=== PATIENT | female | born 1980 | race Caucasian/White ===

== ENCOUNTER 2017-02-16 23:45 | Observation (INO) | payer MEDICAID ==
[2017-02-17] MEDS ORDERED: Glucagon Recombinant 1 mg Inj ONE (00:23)
[2017-02-17] MEDS ORDERED: Morphine 4 MG/ML VIAL ONE ×3 (00:23→02:34)
[2017-02-17] MEDS ORDERED: Glucagon Recombinant 1 mg Inj IM STA (00:24)
[2017-02-17] MEDS ORDERED: Sodium Chloride 0.9% 1,000 ML IV ONE (00:24)
--- NOTE | 2017-02-17 01:25 | C.PDOC ---
History Of Present Illness 36 year old female who presents to the ER with a complaint of an obstruction to the esophagus. Patient states she was eating pork when she felt a piece lodge in her esophagus. Patient is complaint of difficulty swallowing and pain to the substernal area. Denies bleeding or difficulty breathing. Chief Complaint (Nursing): Foreign Body History Per: Patient History/Exam Limitations: no limitations Onset/Duration Of Symptoms: Hrs Current Symptoms Are (Timing): Still Present Recent travel outside of the [place]: No Past Medical History Reviewed: Historical Data, Nursing Documentation, Vital Signs Vital Signs: Last Vital Signs Temp 97.6 F 02/17/17 03:44 Pulse 71 02/17/17 03:44 Resp 22 02/17/17 03:44 BP 132/75 02/17/17 03:44 Pulse Ox 98 02/17/17 03:44 - Medical History PMH: Asthma, Gastritis Surgical History: No Surg Hx Family History: States: Unknown Family Hx - Social History Hx Tobacco Use: No Hx Alcohol Use: No Hx Substance Use: No - Immunization History Hx Tetanus Toxoid Vaccination: No Hx Influenza Vaccination: No Hx Pneumococcal Vaccination: No Review Of Systems ENT: Negative for: Throat Pain, Throat Swelling Gastrointestinal: Positive for: Other (esophageal pain ). Negative for: Vomiting, Abdominal Pain Physical Exam - Physical Exam Appears: Non-toxic Skin: Normal Color, Warm, Dry Head: Atraumatic, Normacephalic Oral Mucosa: Moist Neck: Normal, Supple Chest: Symmetrical, No Tenderness Cardiovascular: Rhythm Regular, No Murmur Respiratory: Normal Breath Sounds, No Rales, No Rhonchi, No Wheezing Gastrointestinal/Abdominal: Soft, No Tenderness Neurological/Psych: Oriented x3, Normal Speech, Normal Cognition ED Course And Treatment - Laboratory Results Result Diagrams: 02/17/17 03:02 02/17/17 03:02 O2 Sat by Pulse Oximetry: 98 (Room air) Pulse Ox Interpretation: Normal - CT Scan/US CT Chest Other Rad Studies (CT/US): Read By Radiologist, Radiology Report Reviewed CT/US Interpretation: EXAM: CT Chest Without Intravenous Contrast. CLINICAL HISTORY: 36 years old, female; Pain and signs and symptoms; Other: Foreign body. Feels porkchop around. mid sternum; Sternal or substernal pain; Additional info: Esophageal obstruction. TECHNIQUE: Axial computed tomography images of the chest without intravenous contrast. This CT exam was. performed using one or more of the following dose reduction techniques: automated exposure. control, adjustment of the mA and/or kV according to patient size, and/or use of iterative. reconstruction technique. Coronal and sagittal reformatted images were created and reviewed. COMPARISON: RF - ESOPHAGUS 2015 10:03:27 AM. FINDINGS: Limitations: Lack of intravenous contrast. Lungs : No consolidation. Pleural space: No pneumothorax. No significant effusion. Heart: No cardiomegaly. No significant pericardial effusion. Mediastinum: Mild air and fluid distention of mid to distal esophagus. Apparent debris within distal. esophagus/GE junction. Bones/joints: No acute fracture. Soft tissues : Unremarkable. Vasculature: Unremarkable. No aneurysm. Lymph nodes: No pathologically enlarged lymph nodes. Adrenals: Small RIGHT adrenal adenoma. IMPRESSION: 1. Mild air/fluid distention of esophagus. Apparent debris within distal esophagus/GE junction. Clinical correlation is needed. 2. Incidental/ non-acute findings are described above. Progress Note: CT chest ordered. Glucagon, morphine, and IV fluids administered. Disposition Discussed With : Jared Guerrero Doctor Will See Patient In The: Hospital Counseled Patient/Family Regarding: Diagnosis - Disposition Disposition: HOSPITALIZED Disposition Time: 02:35 Condition: STABLE - POA Present On Arrival: None - Clinical Impression Clinical Impression: Esophageal obstruction due to food impaction - Scribe Statement The provider has reviewed the documentation as recorded by the Scribjoseph Shelby All medical record entries made by the Scribe were at my direction and personally dictated by me. I have reviewed the chart and agree that the record accurately reflects my personal performance of the history, physical exam, medical decision making, and the department course for this patient. I have also personally directed, reviewed, and agree with the discharge instructions and disposition.
--- NOTE | 2017-02-17 02:22 | CT ---
EXAM: CT Chest Without Intravenous Contrast CLINICAL HISTORY: 36 years old, female; Pain and signs and symptoms; Other: Foreign body. Feels porkchop around mid sternum; Sternal or substernal pain; Additional info: Esophageal obstruction TECHNIQUE: Axial computed tomography images of the chest without intravenous contrast. This CT exam was performed using one or more of the following dose reduction techniques: automated exposure control, adjustment of the mA and/or kV according to patient size, and/or use of iterative reconstruction technique. Coronal and sagittal reformatted images were created and reviewed. COMPARISON: RF - ESOPHAGUS 07/26/2015 10:03:27 AM FINDINGS: Limitations: Lack of intravenous contrast. Lungs: No consolidation. Pleural space: No pneumothorax. No significant effusion. Heart: No cardiomegaly. No significant pericardial effusion. Mediastinum: Mild air and fluid distention of mid to distal esophagus. Apparent debris within distal esophagus/GE junction. Bones/joints: No acute fracture. Soft tissues: Unremarkable. Vasculature: Unremarkable. No aneurysm. Lymph nodes: No pathologically enlarged lymph nodes. Adrenals: Small RIGHT adrenal adenoma. IMPRESSION: 1. Mild air/fluid distention of esophagus. Apparent debris within distal esophagus/GE junction. Clinical correlation is needed. 2. Incidental/non-acute findings are described above.
[2017-02-17 03:06] LABS: BASO % 0.3 % (0.0-2.0); EOS % 0.3 % (0.0-4.0); HEMOGLOBIN 12.2 g/dL (11.0-16.0); LYMPH # 2.1 K/uL (1.0-4.3); MEAN CELL VOLUME 90.7 fL (81.0-99.0); MEAN CORPUSCULAR HEMOGLOBIN 30.4 pg (27.0-31.0); MEAN CORPUSCULAR HGB CONC 33.5 g/dL (33.0-37.0); MEAN PLATELET VOLUME 9.2 fL (7.2-11.7); MONO % 6.5 % (0.0-10.0); NEUT # 11.7 K/uL (1.8-7.0); NEUT % 78.9 % (50.0-75.0); RBC 4.02 Mil/uL (3.80-5.20); RED CELL DISTRIBUTION WIDTH 13.8 % (11.5-14.5); WHITE BLOOD COUNT 14.9 K/uL (4.8-10.8)
[2017-02-17 03:25] LABS: SQUAMOUS EPITHIAL 7 /hpf (0-5); URINE BACTERIA RARE (<OCC); URINE BILIRUBIN NEGATIVE (NEGATIVE); URINE BLOOD NEGATIVE (NEGATIVE); URINE CLARITY Hazy (Clear); URINE COLOR Yellow (YELLOW); URINE GLUCOSE (UA) NORMAL (Normal); URINE LEUKOCYTE ESTERASE NEG Leu/uL (Negative); URINE NITRATE NEGATIVE (NEGATIVE); URINE PROTEIN NEGATIVE (NEGATIVE); URINE UROBILINOGEN NORMAL mg/dL (0.2-1.0)
[2017-02-17 03:28] LABS: ALBUMIN 3.7 g/dL (3.5-5.0)
[2017-02-17 03:31] LABS: ALB/GLOB RATIO 1.3 (1.0-2.1); ALT/SGPT 24 U/L (9-52); AST/SGOT 20 U/L (14-36); BLOOD UREA NITROGEN 13 mg/dL (7-17); GFR AFRICAN-AMERICAN > 60; GFR NON-AFRICAN AMERICAN > 60
[2017-02-17 03:32] LABS: CALCIUM 8.2 mg/dl (8.6-10.4)
[2017-02-17] MEDS: Dextrose 5%/0.45% NS 1,000 ML IV SCH ×2 (04:49→22:54)
--- NOTE | 2017-02-17 11:15 | CP.PCM.HP ---
History of Present Illness - History of Present Illness History of Present Illness: 36 year old female who presents to the ER with a complaint of an obstruction to the esophagus. Patient states she was eating pork when she felt a piece lodge in her esophagus. Patient is complaint of difficulty swallowing and pain to the substernal area. Denies bleeding or difficulty breathing. Review of Systems - Constitutional Constitutional: Weakness Past Patient History - Past Social History Smoking Status: Never Smoked - PULMONARY Hx Asthma: Yes - MUSCULOSKELETAL/RHEUMATOLOGICAL Hx Falls: No - GASTROINTESTINAL Hx Gastritis: Yes - PSYCHIATRIC Hx Substance Use: No - ANESTHESIA Hx Anesthesia: No Meds Allergies/Adverse Reactions: Allergies Allergy/AdvReac Type Severity Reaction Status Date / Time No Known Allergies Allergy Verified 02/17/17 00:02 Physical Exam - Constitutional Appears: Non-toxic, No Acute Distress - Head Exam Head Exam: ATRAUMATIC, NORMAL INSPECTION, NORMOCEPHALIC - Eye Exam Eye Exam: EOMI, Normal appearance, PERRL Pupil Exam: NORMAL ACCOMODATION - ENT Exam ENT Exam: Mucous Membranes Moist, Normal Exam, Normal Oropharynx, TM's Normal Bilaterally - Neck Exam Neck exam: Positive for: Normal Inspection - Respiratory Exam Respiratory Exam: NORMAL BREATHING PATTERN - Cardiovascular Exam Cardiovascular Exam: REGULAR RHYTHM, +S1, +S2 - GI/Abdominal Exam GI & Abdominal Exam: Normal Bowel Sounds - Rectal Exam Rectal Exam: NORMAL INSPECTION - Exam Exam: NORMAL INSPECTION - Neurological Exam Neurological exam: Alert, CN II-XII Intact, Normal Gait, Oriented x3, Reflexes Normal - Skin Skin Exam: Dry Results - Vital Signs Recent Vital Signs: Last Vital Signs Temp 97.6 F 02/17/17 03:44 Pulse 71 02/17/17 03:44 Resp 22 02/17/17 03:44 BP 132/75 02/17/17 03:44 Pulse Ox 98 02/17/17 04:13 - Labs Result Diagrams: 02/17/17 03:02 02/17/17 13:58 Labs: Laboratory Results - last 24 hr 02/17/17 02/17/17 02/17/17 03:02 03:02 03:02 WBC 14.9 H D RBC 4.02 Hgb 12.2 Hct 36.4 MCV 90.7 MCH 30.4 MCHC 33.5 RDW 13.8 Plt Count 243 MPV 9.2 Neut % (Auto) 78.9 H Lymph % (Auto) 14.0 L Love % (Auto) 6.5 Eos % (Auto) 0.3 Baso % (Auto) 0.3 Neut # 11.7 H Lymph # 2.1 Love # 1.0 H Eos # 0.0 Baso # 0.0 Sodium 139 Potassium 3.1 L Chloride 103 Carbon Dioxide 21 L Anion Gap 18 BUN 13 Creatinine 0.5 L Est GFR ( Amer) > 60 Est GFR (Non-Af Amer) > 60 Random Glucose 108 H Calcium 8.2 L Total Bilirubin 0.4 AST 20 ALT 24 Alkaline Phosphatase 78 Total Protein 6.7 Albumin 3.7 Globulin 3.0 Albumin/Globulin Ratio 1.3 Urine Color Yellow Urine Clarity Hazy Urine pH 7.0 Ur Specific [place] 1.024 Urine Protein Negative Urine Glucose (UA) Normal Urine Ketones Negative Urine Blood Negative Urine Nitrate Negative Urine Bilirubin Negative Urine Urobilinogen Normal Ur Leukocyte Esterase Neg Urine WBC (Auto) < 1 Urine RBC (Auto) 1 Ur Squamous Epith Cells 7 H Urine Bacteria Rare Assessment & Plan (1) Esophageal obstruction due to food impaction Status: Acute
--- NOTE | 2017-02-17 12:22 | CARD ---
APPROVED REPORT EKG Measurement Heart [id number] <Conclusion> Normal sinus rhythm Nonspecific T wave abnormality Abnormal ECG
[2017-02-17 14:17] LABS: BLOOD UREA NITROGEN 7 mg/dL (7-17); GFR AFRICAN-AMERICAN > 60; GFR NON-AFRICAN AMERICAN > 60
[2017-02-17 16:19] VITALS: RESP 20
[2017-02-17] MEDS ORDERED: DiphenhydrAMINE 50 mg/ml Inj IVP PRN (19:32)
[2017-02-18] MEDS: Dextrose 5%/0.45% NS 1,000 ML IV SCH (04:57)
[2017-02-18 07:23] LABS: BLOOD UREA NITROGEN 3 mg/dL (7-17); CALCIUM 7.7 mg/dl (8.6-10.4); GFR AFRICAN-AMERICAN > 60; GFR NON-AFRICAN AMERICAN > 60
[2017-02-18 07:32] LABS: BASO % 0.6 % (0.0-2.0); EOS # 0.1 K/uL (0.0-0.7); EOS % 2.1 % (0.0-4.0); HEMOGLOBIN 12.4 g/dL (11.0-16.0); LYMPH # 1.6 K/uL (1.0-4.3); LYMPH % 42.1 % (20.0-40.0); MEAN CELL VOLUME 91.7 fL (81.0-99.0); MEAN CORPUSCULAR HEMOGLOBIN 30.7 pg (27.0-31.0); MEAN CORPUSCULAR HGB CONC 33.5 g/dL (33.0-37.0); MEAN PLATELET VOLUME 9.4 fL (7.2-11.7); MONO # 0.4 K/uL (0.0-0.8); MONO % 10.6 % (0.0-10.0); NEUT # 1.7 K/uL (1.8-7.0); NEUT % 44.6 % (50.0-75.0); NRBC % 0.1 % (0.0-2.0); RBC 4.02 Mil/uL (3.80-5.20)
[2017-02-18 07:35] VITALS: BP 95/61; PULSE 54; TEMP 98; O2SAT 95
[2017-02-18 07:45] LABS: WHITE BLOOD COUNT 3.8 K/uL (4.8-10.8)
[2017-02-18] MEDS: Acetaminophen 650mg/20.3ml solution UD PO PRN ×2 (08:42→17:19)
[2017-02-18] MEDS ORDERED: Lactated Ringer's 1,000 ML IV ONE (13:50)
[2017-02-18] MEDS ORDERED: Propofol 10 mg/ml Inj (20 ML) ONE (13:51)
[2017-02-18] MEDS ORDERED: Glucagon Recombinant 1 mg Inj ONE (14:03)
[2017-02-18] MEDS ORDERED: Sucralfate 1 gm/10 ml Oral Susp UD PO ONE (14:45)
--- NOTE | 2017-02-18 16:54 | CP.PCM.PN ---
Subjective - Date & Time of Evaluation Date of Evaluation: 02/18/17 Time of Evaluation: 10:00 - Subjective Subjective: Pt seen an d examined today , epigastric pain improved, denies any N/V/D , sob S/P EGD - ( NO FOREIGN BODY - grade B reflux esophagatis- see full report for details) Objective - Vital Signs/Intake and Output Vital Signs (last 24 hours): Temp Pulse Resp BP Pulse Ox 98.0 F 54 L 20 95/61 L 95 02/18/17 15:11 02/18/17 15:11 02/18/17 15:11 02/18/17 15:11 02/18/17 15:11 Intake and Output: 02/18/17 02/18/17 06:59 18:59 Intake Total 2100 Balance 2100 - Medications Medications: Current Medications Acetaminophen (Tylenol 650mg/20.3ml Solution Ud) 650 mg PO Q6 PRN PRN Reason: Pain, moderate (4-7) Last Admin: 02/18/17 08:42 Dose: 650 mg Diphenhydramine HCl (Benadryl) 25 mg IVP Q8 PRN PRN Reason: Agitation Last Admin: 02/17/17 21:05 Dose: 25 mg Famotidine (Pepcid) 20 mg IVP Q12 CONCEPCION Last Admin: 02/17/17 21:05 Dose: 20 mg Dextrose/Sodium Chloride (Dextrose 5%/0.45% Ns 1000 Ml) 1,000 mls @ 100 mls/hr IV .Q10H CONCEPCION Last Admin: 02/18/17 04:57 Dose: 100 mls/hr Morphine Sulfate (Morphine) 2 mg IVP Q4 PRN PRN Reason: Pain, severe (8-10) Last Admin: 02/17/17 16:46 Dose: 2 mg - Labs Labs: 02/18/17 07:07 02/18/17 07:07 - Constitutional Appears: Well, No Acute Distress - Respiratory Exam Respiratory Exam: Clear to Ausculation Bilateral, NORMAL BREATHING PATTERN - Cardiovascular Exam Cardiovascular Exam: REGULAR RHYTHM, +S1, +S2 - GI/Abdominal Exam GI & Abdominal Exam: Soft, Normal Bowel Sounds - Neurological Exam Neurological Exam: Alert, Awake, Oriented x3 Assessment and Plan - Assessment and Plan (Free Text) Assessment: A/P 36 yr old female admitted for easophageal obstruction due to food impaction a febrile s/p EGD today - no foreign body ( see report for details) d/W with Dr. Mota, cleared for discharge home today from GI standpoint D/W Dr. Guerrero, stable for discharge home today and f/u with PMD in 1 week Discharge plan discussed with patient , who understands and agrees with plan
--- NOTE | 2017-02-18 21:34 | CP.PCM.DIS ---
Provider - Provider Date of Admission: 02/17/17 02:36 Attending physician: Jared Guerrero MD Diagnosis - Discharge Diagnosis (1) Esophageal obstruction due to food impaction Status: Resolved Hospital Course - Lab Results Lab Results: Most Recent Lab Values WBC 3.8 K/uL (4.8-10.8) L D 02/18/17 07:07 RBC 4.02 Mil/uL (3.80-5.20) 02/18/17 07:07 Hgb 12.4 g/dL (11.0-16.0) 02/18/17 07:07 Hct 36.9 % (34.0-47.0) 02/18/17 07:07 MCV 91.7 fL (81.0-99.0) 02/18/17 07:07 MCH 30.7 pg (27.0-31.0) 02/18/17 07:07 MCHC 33.5 g/dL (33.0-37.0) 02/18/17 07:07 RDW 14.0 % (11.5-14.5) 02/18/17 07:07 Plt Count 197 K/uL (130-400) 02/18/17 07:07 MPV 9.4 fL (7.2-11.7) 02/18/17 07:07 Neut % (Auto) 44.6 % (50.0-75.0) L 02/18/17 07:07 Lymph % (Auto) 42.1 % (20.0-40.0) H 02/18/17 07:07 Mower % (Auto) 10.6 % (0.0-10.0) H 02/18/17 07:07 Eos % (Auto) 2.1 % (0.0-4.0) 02/18/17 07:07 Baso % (Auto) 0.6 % (0.0-2.0) 02/18/17 07:07 Neut # 1.7 K/uL (1.8-7.0) L 02/18/17 07:07 Lymph # 1.6 K/uL (1.0-4.3) 02/18/17 07:07 Mower # 0.4 K/uL (0.0-0.8) 02/18/17 07:07 Eos # 0.1 K/uL (0.0-0.7) 02/18/17 07:07 Baso # 0.0 K/uL (0.0-0.2) 02/18/17 07:07 Sodium 138 mmol/L (132-148) 02/18/17 07:07 Potassium 3.8 mmol/L (3.6-5.2) 02/18/17 07:07 Chloride 104 mmol/L (98-107) 02/18/17 07:07 Carbon Dioxide 25 mmol/L (22-30) 02/18/17 07:07 Anion Gap 13 (10-20) 02/18/17 07:07 BUN 3 mg/dL (7-17) L 02/18/17 07:07 Creatinine 0.5 MG/DL (0.7-1.2) L 02/18/17 07:07 Est GFR ( Amer) > 60 02/18/17 07:07 Est GFR (Non-Af Amer) > 60 02/18/17 07:07 Random Glucose 88 mg/dL (65-105) 02/18/17 07:07 Calcium 7.7 mg/dl (8.6-10.4) L 02/18/17 07:07 Total Bilirubin 0.4 mg/dL (0.2-1.3) 02/17/17 03:02 AST 20 U/L (14-36) 02/17/17 03:02 ALT 24 U/L (9-52) 02/17/17 03:02 Alkaline Phosphatase 78 U/L (38-126) 02/17/17 03:02 Total Protein 6.7 g/dL (6.3-8.3) 02/17/17 03:02 Albumin 3.7 g/dL (3.5-5.0) 02/17/17 03:02 Globulin 3.0 gm/dL (2.2-3.9) 02/17/17 03:02 Albumin/Globulin Ratio 1.3 (1.0-2.1) 02/17/17 03:02 Urine Color Yellow (YELLOW) 02/17/17 03:02 Urine Clarity Hazy (Clear) 02/17/17 03:02 Urine pH 7.0 (5.0-8.0) 02/17/17 03:02 Ur Specific [place] 1.024 (1.003-1.030) 02/17/17 03:02 Urine Protein Negative mg/dL (NEGATIVE) 02/17/17 03:02 Urine Glucose (UA) Normal mg/dL (Normal) 02/17/17 03:02 Urine Ketones Negative mg/dL (NEGATIVE) 02/17/17 03:02 Urine Blood Negative (NEGATIVE) 02/17/17 03:02 Urine Nitrate Negative (NEGATIVE) 02/17/17 03:02 Urine Bilirubin Negative (NEGATIVE) 02/17/17 03:02 Urine Urobilinogen Normal mg/dL (0.2-1.0) 02/17/17 03:02 Ur Leukocyte Esterase Neg Néstor/uL (Negative) 02/17/17 03:02 Urine WBC (Auto) < 1 /hpf (0-5) 02/17/17 03:02 Urine RBC (Auto) 1 /hpf (0-3) 02/17/17 03:02 Ur Squamous Epith Cells 7 /hpf (0-5) H 02/17/17 03:02 Urine Bacteria Rare (<OCC) 02/17/17 03:02 Urine HCG, Qual Negative (NEGATIVE) 02/18/17 13:05 - Hospital Course Hospital Course: ADMITTED WITH DYSPHAGIA, WEAKNESS, AND COULDN'T EAT AND SHE WAS ADMITTED WITH NPO, IVF AND EGD SHOWED ESOPHAGITIS AND SHE IMPROVED AND SHE IS FOR DISCHARGE Discharge Exam - Head Exam Head Exam: ATRAUMATIC, NORMAL INSPECTION, NORMOCEPHALIC - Eye Exam Eye Exam: EOMI, Normal appearance, PERRL Pupil Exam: NORMAL ACCOMODATION - ENT Exam ENT Exam: Mucous Membranes Moist, Normal Exam, Normal Oropharynx, TM's Normal Bilaterally - Neck Exam Neck exam: Normal Inspection - Respiratory Exam Respiratory Exam: NORMAL BREATHING PATTERN - Cardiovascular Exam Cardiovascular Exam: REGULAR RHYTHM, +S1, +S2 - GI/Abdominal Exam GI & Abdominal Exam: Normal Bowel Sounds - Rectal Exam Rectal Exam: NORMAL INSPECTION - Neurological Exam Neurological exam: Alert, CN II-XII Intact, Normal Gait, Oriented x3, Reflexes Normal - Psychiatric Exam Psychiatric exam: Normal Mood - Skin Skin Exam: Intact Discharge Plan - Discharge Medications Prescriptions: Pantoprazole [Protonix] 40 mg PO DAILY #30 ect Metoclopramide HCl [Reglan] 5 mg PO BID PRN #10 tablet PRN Reason: Nausea/Vomiting - Follow Up Plan Condition: STABLE Disposition: HOME/ ROUTINE Instructions: Metoclopramide (By mouth), Pantoprazole (By mouth), Gastritis (DC ), Diet for Ulcers and Gastritis (GEN), Upper Endoscopy (DC), Esophagitis (DC), Duodenitis (DC) Additional Instructions: f/u with PMD in 1 week Continue medication as per Med. REc.
--- NOTE | 2017-02-19 02:10 | CON ---
DATE: 02/17/[address] Domínguez and Dr. Yolanda Coleman. HISTORY OF PRESENT ILLNESS: I was called for a GI consultation by the admitting medical team. The patient is seen and fully examined on 02/17/2017 as requested by the admitting medical team. Entire chart is reviewed including, but not limited to the most recent lab and the radiologic study results, current and the previous medication list, and current and previous medical events, allergy to medication list as well as all the available current and previous medical records. This is a 36-year-old female who was admitted to the hospital through the emergency room with underlying diagnosis of esophageal foreign body with esophageal stricture with dysphagia and the possible esophageal obstruction after eating a large piece of meat several hours prior to her admission. Patient complaining of inability to swallow on saliva at some point. No active bleeding reported. PAST MEDICAL HISTORY: Including, but not limited to: 1. Bronchial asthma. 2. Gastritis. CURRENT MEDICATIONS: Medication lists were reviewed. ALLERGIC TO MEDICATION: Unclear. FAMILY HISTORY: Unrelated. LABORATORY DATA: After being admitted to the hospital, patient's initial blood workup showed leukocytosis of 14.9 with moderately elevated blood glucose level to 108 with low potassium 3.1, low CO2 content to 21 indicative of metabolic acidosis. The rest of the lab results are within normal limits. PHYSICAL EXAMINATION GENERAL: A [id number] female, awake, alert, oriented. VITAL SIGNS: Afebrile with pulse of 76, respiratory rate 20-22, and blood pressure 126/72. HEENT: Showed pale, dry oral mucous membrane, nonicteric sclerae. LUNGS: Scattered crepitation with mild decrease of air entry. HEART: Positive S1 and S2. ABDOMEN: Soft with [id number] tenderness and mild distention. No mass or organomegaly. No rebound tenderness or guarding, but midepigastric mild tenderness. EXTREMITIES: Without edema, clubbing or cyanosis. NEUROLOGIC: No neurological deficits, sensory or motor reported. IMPRESSION: 1. Esophageal foreign body clinically with possible esophageal stricture. 2. Dysphagia secondary to above. 3. Known history of bronchial asthma. SUGGESTION: 1. I agree with your plan. 2. Glucagon IV. 3. Reglan IV. 4. Proton pump inhibitors IV. 5. Keep the patient n.p.o for now. We upper endoscopy at a.m. 6. Further evaluation after upper endoscopy performed to follow. Rosalind Domínguez MD cc: Yolanda Coleman MD
== END 2017-02-18 18:30 | disposition home or self-care (01) ==
LOC: C.ER 23:45 → C.5T 02-17 02:36
PROVIDERS: ADMIT Internal Medicine; ATTEND Internal Medicine
DX: K22.2 Esophageal obstruction (principal); R13.10 Dysphagia, unspecified; K21.0 Gastro-esophageal reflux disease with esophagitis; R13.0 Aphagia; E87.2 Acidosis; K29.80 Duodenitis without bleeding; J45.909 Unspecified asthma, uncomplicated
CPT/HCPCS: 36415; 43239; 71250; 80048; 80053; 81001; 84703; 85025; 88305; 88342; 93005; 96361; 96372; 96374; 96375; 96376; 99284; G0378; J1200; J1610; J2270; J3480; J7040; J7042; J7120

== ENCOUNTER 2017-10-22 03:07 | Emergency (ER) | payer MEDICAID ==
[2017-10-22 03:18] VITALS: RESP 16
--- NOTE | 2017-10-22 03:51 | C.PDOC ---
Time Seen by Provider: 10/22/17 03:50 Chief Complaint (Nursing): Chest Pain Past Medical History Vital Signs: Last Vital Signs Temp 97.9 F 10/22/17 03:15 Pulse 96 H 10/22/17 03:15 Resp 16 10/22/17 03:15 BP 133/87 10/22/17 03:15 Pulse Ox 98 10/22/17 03:15 - Medical History PMH: Asthma, Gastritis Family History: States: Unknown Family Hx - Social History Hx Tobacco Use: No Hx Alcohol Use: Yes Hx Substance Use: No - Immunization History Hx Tetanus Toxoid Vaccination: No Hx Influenza Vaccination: No Hx Pneumococcal Vaccination: No ED Course And Treatment ECG: Interpreted By Me, Viewed By Me ECG Rhythm: Sinus Rhythm (92), Nonspecific Changes O2 Sat by Pulse Oximetry: 98 Pulse Ox Interpretation: Normal Disposition Counseled Patient/Family Regarding: Studies Performed, Diagnosis - Disposition Disposition Time: 03:51
[2017-10-22] MEDS ORDERED: Sodium Chloride 0.9% 1,000 ML IV ONE (04:03)
--- NOTE | 2017-10-22 04:12 | C.PDOC ---
History Of Present Illness Pt was watching tv and starting feeling her mouth being very dry, a burning sensation in her chest. pt was started on zoloft 7 days ago. No prolonged trips , trauma, cp, palpitations,. shortness of breath. Speaking in complete sentences Time Seen by Provider: 10/22/17 03:50 Chief Complaint (Nursing): Chest Pain History Per: Patient History/Exam Limitations: no limitations Onset/Duration Of Symptoms: Hrs Current Symptoms Are (Timing): Still Present Severity: Moderate Pain Scale Rating Of: 4 Reports Recently: Treated By A Physician Recent travel outside of the [place]: No Additional History Per: Patient Past Medical History Reviewed: Historical Data, Nursing Documentation, Vital Signs Vital Signs: Last Vital Signs Temp 97.9 F 10/22/17 03:15 Pulse 96 H 10/22/17 03:15 Resp 16 10/22/17 03:15 BP 133/87 10/22/17 03:15 Pulse Ox 98 10/22/17 04:12 - Medical History PMH: Asthma, Gastritis Family History: States: No Known Family Hx - Social History Hx Tobacco Use: No Hx Alcohol Use: Yes Hx Substance Use: No - Immunization History Hx Tetanus Toxoid Vaccination: No Hx Influenza Vaccination: No Hx Pneumococcal Vaccination: No Review Of Systems Constitutional: Negative for: Fever, Chills ENT: Negative for: Throat Pain Cardiovascular: Negative for: Chest Pain Respiratory: Negative for: Shortness of Breath Gastrointestinal: Negative for: Nausea, Vomiting Musculoskeletal: Negative for: Back Pain Skin: Negative for: Rash Neurological: Negative for: Weakness Psych: Positive for: Anxiety Physical Exam - Physical Exam Appears: Non-toxic, No Acute Distress Skin: Warm, Dry Head: Normacephalic Eye(s): bilateral: Normal Inspection Oral Mucosa: Dry Tongue: Normal Appearing Throat: No Erythema Neck: Supple Chest: Symmetrical Cardiovascular: Rhythm Regular Respiratory: No Rales, No Rhonchi, No Wheezing Gastrointestinal/Abdominal: Soft, No Tenderness Back: Normal Inspection Extremity: Normal ROM Extremity: Bilateral: Atraumatic Neurological/Psych: Oriented x3, Normal Speech, Normal Cognition Gait: Steady ED Course And Treatment - Laboratory Results Result Diagrams: 10/22/17 04:59 10/22/17 04:59 ECG: Interpreted By Me, Viewed By Me O2 Sat by Pulse Oximetry: 98 Pulse Ox Interpretation: Normal Reevaluation Time: 05:53 Reassessment Condition: Improved Disposition Counseled Patient/Family Regarding: Studies Performed, Diagnosis, Need For Followup - Disposition Disposition: HOME/ ROUTINE Disposition Time: 05:53 Condition: FAIR Instructions: Adverse Drug Reactions, Adult (DC) Forms: Neura (Yakut) - Clinical Impression Clinical Impression: Medication reaction
[2017-10-22 05:02] LABS: BASO % 0.5 % (0.0-2.0); EOS # 0.2 K/uL (0.0-0.7); EOS % 3.3 % (0.0-4.0); HEMOGLOBIN 13.2 g/dL (11.0-16.0); LYMPH # 2.2 K/uL (1.0-4.3); LYMPH % 36.1 % (20.0-40.0); MEAN CELL VOLUME 89.5 fL (81.0-99.0); MEAN CORPUSCULAR HEMOGLOBIN 30.9 pg (27.0-31.0); MEAN CORPUSCULAR HGB CONC 34.5 g/dL (33.0-37.0); MEAN PLATELET VOLUME 9.3 fL (7.2-11.7); MONO # 0.6 K/uL (0.0-0.8); MONO % 9.8 % (0.0-10.0); NEUT # 3.1 K/uL (1.8-7.0); NEUT % 50.3 % (50.0-75.0); RBC 4.25 Mil/uL (3.80-5.20); RED CELL DISTRIBUTION WIDTH 12.5 % (11.5-14.5); WHITE BLOOD COUNT 6.1 K/uL (4.8-10.8)
[2017-10-22 05:10] LABS: INR 0.9; PROTHROMBIN TIME 9.9 SECONDS (9.7-12.2)
[2017-10-22 05:15] LABS: ALB/GLOB RATIO 1.3 (1.0-2.1); ALT/SGPT 10 U/L (9-52); AST/SGOT 18 U/L (14-36); BLOOD UREA NITROGEN 17 mg/dL (7-17); CALCIUM 8.5 mg/dl (8.6-10.4); GFR AFRICAN-AMERICAN > 60; GFR NON-AFRICAN AMERICAN > 60
[2017-10-22 05:38] LABS: HCG,QUALITATIVE URINE NEGATIVE (NEGATIVE); SQUAMOUS EPITHIAL 3 /hpf (0-5); URINE BACTERIA RARE (<OCC); URINE BILIRUBIN NEGATIVE (NEGATIVE); URINE BLOOD NEGATIVE (NEGATIVE); URINE CLARITY Hazy (Clear); URINE COLOR Yellow (YELLOW); URINE GLUCOSE (UA) NORMAL (Normal); URINE LEUKOCYTE ESTERASE NEG Leu/uL (Negative); URINE PROTEIN 1+ mg/dL (NEGATIVE)
[2017-10-22 05:45] LABS: B-TYPE NATRIURETIC PEPTIDE < 11.1 pg/mL (0-450)
[2017-10-22 06:09] VITALS: BP 122/76; PULSE 84; TEMP 98.3; O2SAT 97
--- NOTE | 2017-10-23 20:42 | CARD ---
APPROVED REPORT EKG Measurement Heart [id number] <Conclusion> Normal sinus rhythm Nonspecific T wave abnormality Borderline ECG
== END 2017-10-22 06:06 | disposition home or self-care (01) ==
LOC: C.ER 03:07
DX: T88.7XXA Unspecified adverse effect of drug or medicament, initial encounter (principal); T50.995A Adverse effect of other drugs, medicaments and biological substances, initial encounter; Y92.89 Other specified places as the place of occurrence of the external cause